=== PATIENT | male | born 1985 | race African-American/Black ===

== ENCOUNTER 2018-03-12 14:54 | Emergency (ER) | payer OTHER | END 2018-03-12 17:00 | disposition home or self-care (01) | LOC: FTE 14:54 | DX: K08.89 Other specified disorders of teeth and supporting structures (principal) | CPT/HCPCS: 99283; Z7502 ==

== ENCOUNTER 2018-05-27 14:51 | Emergency (ER) | payer OTHER | END 2018-05-27 18:35 | disposition home or self-care (01) | LOC: FTE 14:51 | DX: K08.89 Other specified disorders of teeth and supporting structures (principal) | CPT/HCPCS: 99283; Z7502 ==

== ENCOUNTER 2018-08-17 11:16 | Emergency (ER) | payer OTHER | END 2018-08-17 11:55 | disposition home or self-care (01) | LOC: FTE 11:16 | DX: S80.862A Insect bite (nonvenomous), left lower leg, initial encounter (principal); W57.XXXA Bitten or stung by nonvenomous insect and other nonvenomous arthropods, initial encounter; Y92.009 Unspecified place in unspecified non-institutional (private) residence as the place of occurrence of the external cause | CPT/HCPCS: 99283; Z7502 ==